=== PATIENT | male | born 1975 | race Caucasian/White ===

== ENCOUNTER 2017-09-26 12:31 | Emergency (ER) | payer SELFPAY ==
[~2017-09-26] VITALS: Ht 172.7 cm; Wt 70.0 kg
[2017-09-26 12:45] VITALS: BP 106/70; PULSE 72; RESP 18; TEMP 97.8; O2SAT 100
[2017-09-26 13:10] LABS: AUTOMATED NEUTROPHIL # 2.8 TH/MM3 (1.8-7.7); BASOPHIL # 0.1 TH/MM3 (0-0.2); BASOPHIL % 1.2 % (0.0-2.0); EOSINOPHIL # 0.2 TH/MM3 (0-0.4); EOSINOPHIL % 4.7 % (0.0-4.0); HEMATOCRIT 37.9 % (39.0-51.0); HEMOGLOBIN 13.1 GM/DL (13.0-17.0); LYMPH % 30.6 % (9.0-44.0); LYMPHOCYTE # 1.6 TH/MM3 (1.0-4.8); MEAN CELL VOLUME 92.2 FL (80.0-100.0); MEAN CORPUSCULAR HEMOGLOBIN 31.9 PG (27.0-34.0); MEAN CORPUSCULAR HGB CONC 34.6 % (32.0-36.0); MEAN PLATELET VOLUME 8.3 FL (7.0-11.0); MONO % 9.1 % (0.0-8.0); MONOCYTE # 0.5 TH/MM3 (0-0.9); NEUT % 54.4 % (16.0-70.0); PLATELET COUNT 188 TH/MM3 (150-450); RED BLOOD COUNT 4.11 MIL/MM3 (4.50-5.90); RED CELL DISTRIBUTION WIDTH 13.5 % (11.6-17.2); WHITE BLOOD COUNT 5.2 TH/MM3 (4.0-11.0)
[2017-09-26 13:28] LABS: BICARBONATE 26.8 MEQ/L (21.0-32.0); BLOOD UREA NITROGEN 7 MG/DL (7-18); CHLORIDE 110 MEQ/L (98-107); CREATININE 0.78 MG/DL (0.60-1.30); GLOMERULAR FILTRATION RATE 110 ML/MIN (>89); GLUCOSE,RANDOM 99 MG/DL (74-106); SODIUM (NA) 142 MEQ/L (136-145)
[2017-09-26 13:30] LABS: TROPONIN I LESS THAN 0.02 NG/ML (0.02-0.05)
--- NOTE | 2017-09-26 13:45 | RADRPT ---
EXAM DATE/TIME: 09/26/2017 13:04 [place] COMPARISON: No previous studies available for comparison. INDICATIONS : Chest pain in the middle of chest started at 10am today, short of breath, smoker MEDICAL HISTORY : None. SURGICAL HISTORY : None. ENCOUNTER: Initial ACUITY: 1 day PAIN SCORE: 10/10 LOCATION: Bilateral chest FINDINGS: A single view of the chest demonstrates the lungs to be symmetrically aerated without evidence of mas s, infiltrate or effusion. The cardiomediastinal contours are unremarkable. Osseous structures are intact. CONCLUSION: No acute disease. Gerry Green Jr., MD on September 26, 2017 at 13:42 Board Certified Radiologist. This report was verified electronically.
--- NOTE | 2017-09-26 14:40 | PD ---
HPI Chief Complaint: Chest Pain Time Seen by Provider: 14:41 Travel History International Travel<30 days: No Contact w/Intl Traveler<30days: No Traveled to known affect area: No History of Present Illness HPI 42-year-old male presents to the ED via EMS for evaluation of sudden onset 8/10 central chest pain around 7:30 this morning. Patient states that he was eating a waffle when the pain occurred. He endorses accompanying shortness of breath and nausea. Denies palpitations or diaphoresis. He states that the pain lasted approximately 5 minutes before resolving spontaneously. Asymptomatic on presentation. EMS reports upon arrival the patient was sleeping in a chair. The patient is a 20+ year smoker. He endorses familial history of [place] and his grandparents. He denies illicit drug or alcohol use. [facility] Social History Tobacco Use: Yes (1 ppd) Review of Systems Except as stated in HPI: all other systems reviewed are Neg Physical Exam Narrative GENERAL: Well-nourished, well-developed white male in no acute distress. SKIN: Focused skin assessment warm/dry. HEAD: Normocephalic. EYES: No scleral icterus. No injection or drainage. NECK: Supple, trachea midline. No JVD or lymphadenopathy. CARDIOVASCULAR: Regular rate and rhythm without murmurs, gallops, or rubs. CHEST: Nontender throughout without deformity or crepitus. No retractions. RESPIRATORY: Breath sounds clear and equal bilaterally. No accessory muscle use. GASTROINTESTINAL: Abdomen soft, non-tender, nondistended. Active bowel sounds. MUSCULOSKELETAL: No cyanosis, or edema. BACK: Nontender without obvious deformity. No CVA tenderness. Data Data Last Documented VS Vital Signs Date Time Temp Pulse Resp B/P (MAP) Pulse Ox O2 Delivery O2 Flow Rate FiO2 09/26/17 14:39 18 09/26/17 12:45 97.8 72 106/70 (82) 100 Orders Orders Electrocardiogram (09/26/17 12:47) Complete Blood Count With Diff (09/26/17 12:47) Basic Metabolic Panel (Bmp) (09/26/17 12:47) Ckmb (Isoenzyme) Profile (09/26/17 12:47) Troponin I (09/26/17 12:47) Chest, Single Ap (09/26/17 12:47) Iv Access Insert/Monitor (09/26/17 12:47) Ecg Monitoring (09/26/17 12:47) Oxygen Administration (09/26/17 12:47) Oximetry (09/26/17 12:47) CKMB (09/26/17 12:55) CKMB% (09/26/17 12:55) Ed Discharge Order (09/26/17 14:41) Labs Laboratory Tests Test 09/26/17 12:55 White Blood Count 5.2 TH/MM3 Red Blood Count 4.11 MIL/MM3 Hemoglobin 13.1 GM/DL Hematocrit 37.9 % Mean Corpuscular Volume 92.2 FL Mean Corpuscular Hemoglobin 31.9 PG Mean Corpuscular Hemoglobin Concent 34.6 % Red Cell Distribution Width 13.5 % Platelet Count 188 TH/MM3 Mean Platelet Volume 8.3 FL Neutrophils (%) (Auto) 54.4 % Lymphocytes (%) (Auto) 30.6 % Monocytes (%) (Auto) 9.1 % Eosinophils (%) (Auto) 4.7 % Basophils (%) (Auto) 1.2 % Neutrophils # (Auto) 2.8 TH/MM3 Lymphocytes # (Auto) 1.6 TH/MM3 Monocytes # (Auto) 0.5 TH/MM3 Eosinophils # (Auto) 0.2 TH/MM3 Basophils # (Auto) 0.1 TH/MM3 CBC Comment DIFF FINAL Differential Comment Blood Urea Nitrogen 7 MG/DL Creatinine 0.78 MG/DL Random Glucose 99 MG/DL Calcium Level 8.0 MG/DL Sodium Level 142 MEQ/L Potassium Level 4.3 MEQ/L Chloride Level 110 MEQ/L Carbon Dioxide Level 26.8 MEQ/L Anion Gap 5 MEQ/L Estimat Glomerular Filtration Rate 110 ML/MIN Total Creatine Kinase 128 U/L Creatine Kinase MB 1.4 NG/ML Troponin I LESS THAN 0.02 NG/ML MDM Medical Decision Making Medical Screen Exam Complete: Yes Emergency Medical Condition: Yes Differential Diagnosis GERD versus angina versus musculoskeletal pain versus ACS versus other Narrative Course 42-year-old male presents to the ED via EMS for evaluation of sudden onset 8/10 central chest pain around 7:30 this morning. Patient states that he was eating a waffle when the pain occurred. He endorses accompanying shortness of breath and nausea. He states that the pain lasted approximately 5 minutes before resolving spontaneously. Asymptomatic on presentation. EMS reports upon arrival the patient was sleeping in a chair. The patient is a 20+ year smoker. He endorses familial history of [place] and his grandparents. He denies illicit drug or alcohol use. Vitals reviewed. Physical exam is unremarkable. EKG rate 61, sinus rhythm. Normal intervals. Normal axis. No acute ST changes. Reviewed by Dr. Carmichael. CXR: No acute disease per radiology read. Troponin negative 1. CBC, CMP unremarkable. I discussed the results of workup with the patient. Given his risk factors I recommended that he be admitted for observation in the chest pain center. Patient states that he needs to go back to work and does not want to be admitted. I explained the risks of leaving without full evaluation, up to and including . The patient acknowledged understanding of these risks but still chose to leave AGAINST MEDICAL ADVICE. Diagnosis Primary Impression: Chest pain Qualified Codes: R07.9 - Chest pain, unspecified Referrals: [facility] Patient Instructions: Chest Pain (ED), General Instructions Additional Instructions: Follow-up with the english instructor. Return to the ED for any urgent or emergent medical condition. Disposition: 07 AGAINST MEDICAL ADVICE Condition: Stable Eliz Mullins Sep 26, 2017 14:40
[2017-09-26 14:46] VITALS: BP 106/71
--- NOTE | 2017-09-27 22:12 | EKG ---
Date Performed: 09/26/2017 Time Performed: 12:41:43 PTAGE: 42 years EKG: Sinus rhythm NORMAL ECG NO PREVIOUS TRACING DOCTOR: Sampson Lizarraga Interpretating Date/Time 09/27/2017 22:10:32
== END 2017-09-26 14:56 | disposition left against medical advice (07) ==
LOC: NEDAMB 12:31 → NEPE 14:56
DX: R07.9 Chest pain, unspecified (principal); F17.210 Nicotine dependence, cigarettes, uncomplicated
CPT/HCPCS: 71045; 80048; 82550; 82552; 84484; 85025; 93005; 99285